=== PATIENT | male | born 1945 | race Caucasian/White ===

== ENCOUNTER 2020-10-30 18:52 | Inpatient (IN) | payer MEDICARE ==
[~2020-10-30] VITALS: Ht 182.9 cm; Wt 86.6 kg
--- NOTE | 2020-10-30 19:00 | NUR ---
GPS RN-ADMISSION NOTES: ADMITTED A 75-YR OLD MALE, FROM [facility]. ADMITTED ON 5150 FOR DTS. PER HOLD, PT HAS BEEN DEPRESSED SINCE A STROKE 2YEARS AGO AND HAS STATED THAT HE IS READY TO ". "IT'S TIME FOR ME TO GO". PER REPORTS, PT IS IMPULSIVE AND FEARS HE WILL WALK INTO TRAFFIC. UPON FACE TO FACE ASSESSMENT, PATIENT IS A/OX3, DEPRESSED, CALM AND COOPERATIVE. PT WAS ADVISED OF HIS HOLD. PT'S RIGHTS HANDBOOK AND A GUIDE TO PRESCRIPTION MEDICATIONS GIVEN. IN NO APPARENT DISTRESS NOTED. BELONGINGS WERE INVENTORIED AND CHECKED FOR CONTRABAND. PT. IS UNDER THE PSYCHIATRIC CARE OF DR. BIANCA SINGH OBTAINED, AND UNDER THE MEDICAL CARE OF NAVNEET CHARLTON. SKIN BODY ASSESSMENT DONE. SKIN IS INTACT. DENIES PAIN/ DISCOMFORT AT THIS TIME. SAFETY PRECAUTIONS IN PLACE. BED IN LOCKED AND IN LOWEST POSITION. SIDE RAILS UP X2. WILL CONTINUE TO MONITOR Q15 MIN ROUNDS FOR SAFETY AND BEHAVIOR.
[2020-10-30] MEDS ORDERED: MAGNESIUM HYDROXIDE 30 ML UDC PO PRN (19:30)
[2020-10-30] MEDS ORDERED: MAG HYDROX/AL HYDROX/SIMETH 30 ML UDC PO PRN (19:30)
[2020-10-30] MEDS ORDERED: ACETAMINOPHEN 325 MG TABLET PO PRN (19:30)
[2020-10-30 20:00] VITALS: BP 157/83
[2020-10-30 20:11] VITALS: BP 154/83
[2020-10-30] MEDS ORDERED: EZETIMIBE PO (20:14)
[2020-10-30] MEDS ORDERED: INSULIN GLARGINE SQ (20:14)
[2020-10-30] MEDS ORDERED: LOSARTAN PO (20:14)
[2020-10-30] MEDS: TEMAZEPAM 7.5 MG CAPSULE PO PRN (21:27)
--- NOTE | 2020-10-30 21:27 | NUR ---
GPS-RN NOTES: INSOMNIA PATIENT C/O UNABLE TO SLEEP. ADMINISTERED RESTORIL 7.5MG PO ORDERED. WILL CONTINUE TO MONITOR FOR PATIENT'S SAFETY.
[2020-10-30] MEDS ORDERED: BLOOD SUGAR DIAGNOSTIC 1 EACH STRIP IN ONE (21:30)
[2020-10-30] MEDS ORDERED: DEXTROSE 50%-WATER 50 ML DISP.SYRIN IV PRN (22:00)
[2020-10-30] MEDS: BLOOD SUGAR DIAGNOSTIC 1 EACH STRIP IN SCH (22:14)
[2020-10-31 06:56] LABS: ALANINE AMINOTRANSFERASE 13 U/L (12-78); ALBUMIN 3.1 g/dL (3.4-5.0); ALKALINE PHOSPHATASE 59 U/L (46-116); ASPARTATE AMINOTRANSFERASE 10 U/L (15-37); BILIRUBIN,TOTAL 1.4 mg/dL (0.2-1.0); CALCIUM, SERUM 8.9 mg/dL (8.5-10.1); CARBON DIOXIDE 24 mmol/L (21-32); CHLORIDE 108 mmol/L (98-107); CREATININE 1.5 mg/dL (0.6-1.3); GLUCOSE 165 mg/dL (74-106); POTASSIUM 3.8 mmol/L (3.5-5.1); SODIUM SERUM 141 mmol/L (136-145); TOTAL PROTEIN, SERUM 6.1 g/dL (6.4-8.2); UREA NITROGEN, BLOOD 22 mg/dL (7-18)
[2020-10-31 07:00] LABS: CHOLESTEROL 223 mg/dL (<200); HDL CHOLESTEROL 36 mg/dL (40-60); LDL 149 mg/dL (0-99); TRIGLYCERIDES 218 mg/dL (30-150)
[2020-10-31 08:00] VITALS: BP 128/75
[2020-10-31] MEDS: LOSARTAN POTASSIUM 25 MG TABLET PO SCH (09:28)
[2020-10-31] MEDS: EZETIMIBE 10 MG TABLET PO SCH (09:28)
[2020-10-31] MEDS: INSULIN REGULAR, HUMAN 100 UNIT/ML 3 ML VIAL SQ PRN (09:31)
[2020-10-31] MEDS: INSULIN GLARGINE, 100 UNIT/ML CARTRIDGE SQ SCH (09:34)
[2020-10-31] MEDS: BLOOD SUGAR DIAGNOSTIC 1 EACH STRIP IN SCH ×4 (09:35→22:26)
[2020-10-31] MEDS: OLANZAPINE 2.5 MG TABLET PO SCH ×2 (11:30→17:14)
[2020-10-31] MEDS: DIVALPROEX SODIUM 250 MG TABLET.DR PO SCH ×2 (11:30→17:14)
[2020-10-31] MEDS: LORAZEPAM 0.5 MG TABLET PO PRN (13:07)
--- NOTE | 2020-10-31 13:08 | NUR ---
RN NOTE:Patient agitated and medicated with Ativan 0.5mg x1 will continue to monitor .
[2020-10-31 16:00] VITALS: BP 129/81
[2020-10-31 20:00] VITALS: BP 114/62
--- NOTE | 2020-11-01 06:51 | NUR ---
GPS RN CLOSING NOTES: PATIENT AWAKE, A/O X3. SLEPT 8.5HR THIS SHIFT. NO S/S OF DISTRESS. RESPIRATION EVEN AND UNLABORED WITH EQUAL RISE AND FALL OF THE CHEST ON ROOM AIR. NO BEHAVIORAL ISSUES THIS SHIFT. SAFETY PRECAUTION MAINTAINED, BED IN LOWEST POSITION AND LOCKED. Q15 MINUTES SAFETY ROUND CONTINUED. ALL PATIENT CARE NEEDS MET ANTICIPATED. WILL CONTINUE TO MONITOR PATIENT FOR MOOD, BEHAVIOR AND SAFETY AND ENDORSE TO AM SHIFT.
--- NOTE | 2020-11-01 07:25 | NUR ---
GPS RN NOTES PATIENT SEEN IN BED RESTING, AWAKE AND VERBALLY RESPONSIVE. BREATHING EVEN AND UNLABORED, ON ROOM AIR. ABLE TO MAKE NEEDS KNOWN, NOT IN ACUTE DISTRESS AT THIS TIME. SAFETY PRECAUTIONS IN PLACE. WILL CONTINUE TO MONITOR.
[2020-11-01] MEDS: BLOOD SUGAR DIAGNOSTIC 1 EACH STRIP IN SCH ×4 (07:40→21:34)
[2020-11-01] MEDS: INSULIN REGULAR, HUMAN 100 UNIT/ML 3 ML VIAL SQ PRN ×3 (07:42→17:05)
[2020-11-01 08:00] VITALS: BP 111/68
[2020-11-01 08:39] LABS: BASOPHILS % (AUTO) 0.8 % (0.0-2.0); EOSINOPHILS % (AUTO) 4.8 % (0.0-6.0); HEMATOCRIT 37 % (39-51); HEMOGLOBIN 12.9 g/dL (13.5-17.5); LYMPHOCYTES # (AUTO) 0.8 /CMM (0.8-4.8); MEAN CORPUSCULAR HGB CONC 35 g/dl (31.0-36.0); MEAN CORPUSCULAR VOLUME 96 fL (80-96); MONOCYTES # (AUTO) 0.6 /CMM (0.1-1.30); NEUTROPHILS # (AUTO) 3.8 /CMM (1.8-8.9); NEUTROPHILS % (AUTO) 68.4 % (43.0-81.0); PLATELET COUNT (AUTO) 144 /CMM (150-450); RED BLOOD CELL COUNT(AUTO) 3.86 MIL/uL (4.5-6.0); WHITE BLOOD COUNT (AUTO) 5.6 K/uL (4.3-11.0)
[2020-11-01 08:50] LABS: CREATINE KINASE, TOTAL 130 U/L (39-308)
[2020-11-01 08:51] LABS: ALANINE AMINOTRANSFERASE 12 U/L (12-78); ALBUMIN 3.1 g/dL (3.4-5.0); ALKALINE PHOSPHATASE 51 U/L (46-116); ASPARTATE AMINOTRANSFERASE 12 U/L (15-37); BILIRUBIN,TOTAL 1.6 mg/dL (0.2-1.0); CALCIUM, SERUM 8.9 mg/dL (8.5-10.1); CARBON DIOXIDE 24 mmol/L (21-32); CHLORIDE 108 mmol/L (98-107); CREATININE 1.4 mg/dL (0.6-1.3); GLUCOSE 105 mg/dL (74-106); MAGNESIUM 1.9 mg/dL (1.8-2.4); PHOSPHORUS 3.8 mg/dL (2.5-4.9); POTASSIUM 3.8 mmol/L (3.5-5.1); SODIUM SERUM 141 mmol/L (136-145); TOTAL PROTEIN, SERUM 6.2 g/dL (6.4-8.2); UREA NITROGEN, BLOOD 26 mg/dL (7-18)
[2020-11-01] MEDS: OLANZAPINE 2.5 MG TABLET PO SCH ×2 (09:07→16:13)
[2020-11-01] MEDS: EZETIMIBE 10 MG TABLET PO SCH (09:07)
[2020-11-01] MEDS: DIVALPROEX SODIUM 250 MG TABLET.DR PO SCH ×2 (09:08→16:13)
[2020-11-01] MEDS: LOSARTAN POTASSIUM 25 MG TABLET PO SCH (09:08)
[2020-11-01] MEDS: INSULIN GLARGINE, 100 UNIT/ML CARTRIDGE SQ SCH (09:10)
[2020-11-01 16:00] VITALS: BP 117/67
--- NOTE | 2020-11-01 16:15 | NUR ---
Family Contact: SW called the pts , Dee Briseno ([phone]), and discussed the pts treatment. She stated that the pt has been confused and that he needs to become stabilized. SW inquired if she wanted the pt to be discharged back home and she stated that she wants to see how the pt progresses before thinking about placement.
--- NOTE | 2020-11-01 19:13 | NUR ---
GPS RN NOTES PATIENT IN THE ROOM, AWAKE AND VERBALLY RESPONSIVE. PREVIOUSLY SEEN WALKING ALONG THE HALLWAY, NO ISSUES NOTED. NEEDS REINFORCEMENT W/ MEDICATION COMPLIANCE. SAFETY PRECS MAINTAINED. WILL ENDORSE TO BAND INSTRUMENT REPAIRER RN FOR SUNDAR.
[2020-11-01 20:39] VITALS: BP 125/66
[2020-11-02 07:06] LABS: PTH, INTACT 18 pg/mL (15-65)
[2020-11-02 08:00] VITALS: BP 122/51
[2020-11-02] MEDS: BLOOD SUGAR DIAGNOSTIC 1 EACH STRIP IN SCH ×4 (08:06→21:16)
[2020-11-02] MEDS: EZETIMIBE 10 MG TABLET PO SCH (09:29)
[2020-11-02] MEDS: OLANZAPINE 2.5 MG TABLET PO SCH ×2 (09:29→17:02)
[2020-11-02] MEDS: DIVALPROEX SODIUM 250 MG TABLET.DR PO SCH ×2 (09:29→17:01)
[2020-11-02] MEDS: LOSARTAN POTASSIUM 25 MG TABLET PO SCH (09:33)
[2020-11-02] MEDS: INSULIN GLARGINE, 100 UNIT/ML CARTRIDGE SQ SCH (10:10)
--- NOTE | 2020-11-02 10:45 | NUR ---
reluctant to take insulin,very confused.needed coaxing.
[2020-11-02] MEDS: INSULIN REGULAR, HUMAN 100 UNIT/ML 3 ML VIAL SQ PRN ×2 (12:13→21:38)
--- NOTE | 2020-11-02 13:55 | NUR ---
NOTED RED SPOT MID BACK PHOTO TAKEN.MEPILEX APPLIED.REFUSED SKIN CHECK ON ADMISSION.
--- NOTE | 2020-11-02 13:58 | NUR ---
Initial Discharge Plan: Pt currently resides at home with his , Dee Briseno ([phone]), located at [address] [place] [address]. Per pt, he would like to return to his home. Per pts , she would like to see his progress before considering placement. SHANNON will work with the pt, pts , and MD regarding discharge planning. SW will form a safe and proper discharge.
[2020-11-02 15:07] LABS: *SPE A/G RATIO 1.2 (0.7-1.7); *SPE ALPHA-1-GLOBULIN 0.2 g/dL (0.0-0.4); *SPE ALPHA-2-GLOBULIN 0.8 g/dL (0.4-1.0); *SPE BETA GLOBULIN 0.9 g/dL (0.7-1.3); *SPE GLOBULIN, TOTAL 2.6 g/dL (2.2-3.9); *SPE M-SPIKE Not Observed g/dL (Not Observed); *SPEGAMMA GLOBULIN 0.7 g/dL (0.4-1.8)
--- NOTE | 2020-11-02 15:29 | NUR ---
STAYS IN . MOST OF TIME,MED COMPLIANT.VITAL SIGNS STABLE.NO ACUTE DISTRESS.
[2020-11-02 16:00] VITALS: BP 105/61
[2020-11-02 19:34] VITALS: BP 111/51
[2020-11-02] MEDS: TEMAZEPAM 7.5 MG CAPSULE PO PRN (23:37)
--- NOTE | 2020-11-02 23:37 | NUR ---
GPS-RN NOTES: INSOMNIA PATIENT C/O INABILITY TO SLEEP. ADMINISTERED RESTORIL 7.5MG PO ORDERED. WILL CONTINUE TO MONITOR FOR PATIENT'S SAFETY.
--- NOTE | 2020-11-03 07:40 | NUR ---
bgl 87 in am lantus insulin to be delayed a little.
[2020-11-03 08:00] VITALS: BP 143/90
[2020-11-03] MEDS: BLOOD SUGAR DIAGNOSTIC 1 EACH STRIP IN SCH ×4 (08:28→22:12)
--- NOTE | 2020-11-03 09:52 | NUR ---
WOUND CARE CONSULT: PT PRESENTS AMBULATORY AND HAS REDNESS/ABRASION TO UPPER BACK. RECOMMENDATIONS MADE FOR SKIN PROTECTION AND WOUND CARE. SURGICAL SCAR NOTED TO BACK WELL. PT INCONTINENT OF STOOL. SHOWER TO BE ASSISTED BY NURSING STAFF. WILL SEE PRN. DODGE IN AGREEMENT WITH PLAN OF CARE.
[2020-11-03] MEDS: DIVALPROEX SODIUM 250 MG TABLET.DR PO SCH ×3 (10:33→22:11)
[2020-11-03] MEDS: OLANZAPINE 2.5 MG TABLET PO SCH ×2 (10:33→17:07)
[2020-11-03] MEDS: LOSARTAN POTASSIUM 25 MG TABLET PO SCH (10:34)
[2020-11-03] MEDS: EZETIMIBE 10 MG TABLET PO SCH (10:34)
--- NOTE | 2020-11-03 11:03 | NUR ---
Probable Cause Hearing: Pts [id number] hold was upheld for grave disability and danger to self.
[2020-11-03] MEDS: INSULIN GLARGINE, 100 UNIT/ML CARTRIDGE SQ SCH (11:55)
[2020-11-03] MEDS: INSULIN REGULAR, HUMAN 100 UNIT/ML 3 ML VIAL SQ PRN ×2 (11:57→18:29)
--- NOTE | 2020-11-03 15:49 | NUR ---
briseyda lithographers printer in and made aware of blood sugar in am.no change in dose of lantus.
--- NOTE | 2020-11-03 15:50 | NUR ---
no change in status.resting in rm.
[2020-11-03 16:00] VITALS: BP 146/74
--- NOTE | 2020-11-03 18:48 | NUR ---
additional photo taken of red spots on back.placed photo in chart.
[2020-11-03 20:00] VITALS: BP 133/70
[2020-11-04] MEDS: BLOOD SUGAR DIAGNOSTIC 1 EACH STRIP IN SCH ×4 (07:30→21:09)
[2020-11-04 08:00] VITALS: BP 136/72
[2020-11-04] MEDS: OLANZAPINE 2.5 MG TABLET PO SCH ×2 (09:13→16:18)
[2020-11-04] MEDS: DIVALPROEX SODIUM 250 MG TABLET.DR PO SCH ×3 (09:13→21:09)
[2020-11-04] MEDS: EZETIMIBE 10 MG TABLET PO SCH (09:13)
[2020-11-04] MEDS: LOSARTAN POTASSIUM 25 MG TABLET PO SCH (09:14)
[2020-11-04] MEDS: INSULIN GLARGINE, 100 UNIT/ML CARTRIDGE SQ SCH (09:42)
[2020-11-04 16:00] VITALS: BP 127/66
[2020-11-04] MEDS: INSULIN REGULAR, HUMAN 100 UNIT/ML 3 ML VIAL SQ PRN (17:38)
[2020-11-04 20:00] VITALS: BP 103/52
[2020-11-05] MEDS: BLOOD SUGAR DIAGNOSTIC 1 EACH STRIP IN SCH ×4 (07:01→21:38)
[2020-11-05 07:23] LABS: BASOPHILS % (AUTO) 0.7 % (0.0-2.0); EOSINOPHILS % (AUTO) 5.7 % (0.0-6.0); HEMATOCRIT 39 % (39-51); HEMOGLOBIN 13.4 g/dL (13.5-17.5); MEAN CORPUSCULAR HGB CONC 34 g/dl (31.0-36.0); MEAN CORPUSCULAR VOLUME 97 fL (80-96); MONOCYTES # (AUTO) 0.7 /CMM (0.1-1.30); MONOCYTES % (AUTO) 12.9 % (2.0-12.0); NEUTROPHILS # (AUTO) 3.3 /CMM (1.8-8.9); NEUTROPHILS % (AUTO) 61.7 % (43.0-81.0); PLATELET COUNT (AUTO) 149 /CMM (150-450); RED BLOOD CELL COUNT(AUTO) 4.04 MIL/uL (4.5-6.0); WHITE BLOOD COUNT (AUTO) 5.4 K/uL (4.3-11.0)
[2020-11-05 08:00] VITALS: BP 125/55
[2020-11-05 08:30] LABS: CARBON DIOXIDE 24 mmol/L (21-32); CHLORIDE 108 mmol/L (98-107); CREATININE 1.4 mg/dL (0.6-1.3); GLUCOSE 101 mg/dL (74-106); MAGNESIUM 2.1 mg/dL (1.8-2.4); PHOSPHORUS 3.3 mg/dL (2.5-4.9); POTASSIUM 3.8 mmol/L (3.5-5.1); SODIUM SERUM 143 mmol/L (136-145); UREA NITROGEN, BLOOD 29 mg/dL (7-18)
[2020-11-05] MEDS: DIVALPROEX SODIUM 250 MG TABLET.DR PO SCH ×3 (08:38→20:06)
[2020-11-05] MEDS: LORAZEPAM 0.5 MG TABLET PO PRN (08:38)
[2020-11-05] MEDS: EZETIMIBE 10 MG TABLET PO SCH (08:39)
[2020-11-05] MEDS: LOSARTAN POTASSIUM 25 MG TABLET PO SCH (08:39)
[2020-11-05] MEDS: OLANZAPINE 2.5 MG TABLET PO SCH ×3 (08:39→21:19)
[2020-11-05] MEDS: INSULIN GLARGINE, 100 UNIT/ML CARTRIDGE SQ SCH (08:51)
[2020-11-05 10:40] VITALS: BP 125/55
[2020-11-05] MEDS: INSULIN REGULAR, HUMAN 100 UNIT/ML 3 ML VIAL SQ PRN (11:53)
--- NOTE | 2020-11-05 13:35 | NUR ---
Family Contact: SW called the pts , Dee Briseno ([phone]), and inquired about the pts discharge plan. Pts stated that she is not certain if she would want him home due to safety concerns. SW stated that she could refer the pt to a facility with dementia care and that once he is more stable he can return to their home. Pts stated that she agrees with this plan. SW stated that she will keep her updated.
--- NOTE | 2020-11-05 13:42 | NUR ---
SNF Referral: SHANNON faxed a referral to [facility] with attn to Negin to the fax number: [phone] and [facility] with attn to Sravan to the fax number: [phone].
--- NOTE | 2020-11-05 14:52 | NUR ---
SNF Contact: Sravan ([phone]) from [facility] contacted the SW and stated that the pt was accepted to their facility.
[2020-11-05 16:11] VITALS: BP 123/61
[2020-11-05 19:55] VITALS: BP 104/52
[2020-11-05 21:00] VITALS: BP 123/65
--- NOTE | 2020-11-06 06:36 | NUR ---
RN NOTES: PATIENT RESTING IN ROOM. NO S/S OF DISTRESS. NO BEHAVIOR PROBLEMS NOTED AND NO CHANGE OF CONDITION NOTED, SAFETY PRECAUTION MAINTAINED, Q15 MINUTES SAFETY ROUND CONTINUED. ALL PATIENT CARE NEEDS MET AT THIS TIME. WILL CONTINUE TO MONITOR PATIENT FOR MOOD, BEHAVIOR AND SAFETY AND ENDORSE TO AM SHIFT FOR CONTINUITY CARE.
[2020-11-06 08:00] VITALS: BP 118/58
[2020-11-06] MEDS: BLOOD SUGAR DIAGNOSTIC 1 EACH STRIP IN SCH ×4 (08:21→22:46)
[2020-11-06] MEDS: LOSARTAN POTASSIUM 25 MG TABLET PO SCH (09:00)
[2020-11-06] MEDS: EZETIMIBE 10 MG TABLET PO SCH (09:31)
[2020-11-06] MEDS: DIVALPROEX SODIUM 250 MG TABLET.DR PO SCH ×2 (09:32→21:14)
[2020-11-06] MEDS: INSULIN GLARGINE, 100 UNIT/ML CARTRIDGE SQ SCH (11:48)
--- NOTE | 2020-11-06 15:39 | NUR ---
VERY CONFUSED AND DISORGANIZED.REORIENTED.PLEASANT,COOPERATIVE.
[2020-11-06 16:00] VITALS: BP 117/55
[2020-11-06 20:55] VITALS: BP 141/78
[2020-11-06] MEDS: OLANZAPINE 2.5 MG TABLET PO SCH (22:36)
[2020-11-06] MEDS: INSULIN REGULAR, HUMAN 100 UNIT/ML 3 ML VIAL SQ PRN (22:52)
--- NOTE | 2020-11-07 06:50 | NUR ---
GPS RN CLOSING NOTES: PATIENT AWAKE AND ALERT. PATIENT SLEPT 9 HR THIS SHIFT. NO BEHAVIORAL ISSUES THIS SHIFT. MEDICATION COMPLIANT, NO PRN MEDS GIVEN THIS SHIFT. NO S/S OF DISTRESS. RESPIRATION EVEN AND UNLABORED WITH EQUAL RISE AND FALL OF THE CHEST ON ROOM AIR. SAFETY PRECAUTION MAINTAINED, BED IN LOWEST POSITION AND LOCKED. Q15 MINUTES SAFETY ROUND CONTINUED. ALL PATIENT CARE NEEDS MET ANTICIPATED. WILL CONTINUE TO MONITOR PATIENT FOR MOOD, BEHAVIOR AND SAFETY AND ENDORSE TO AM SHIFT.
[2020-11-07] MEDS: BLOOD SUGAR DIAGNOSTIC 1 EACH STRIP IN SCH ×4 (07:30→22:25)
[2020-11-07 08:00] VITALS: BP 136/71
[2020-11-07] MEDS: EZETIMIBE 10 MG TABLET PO SCH (08:52)
[2020-11-07] MEDS: DIVALPROEX SODIUM 250 MG TABLET.DR PO SCH ×2 (08:52→20:43)
[2020-11-07] MEDS: LOSARTAN POTASSIUM 25 MG TABLET PO SCH (08:52)
[2020-11-07] MEDS: INSULIN GLARGINE, 100 UNIT/ML CARTRIDGE SQ SCH (08:57)
[2020-11-07] MEDS: INSULIN REGULAR, HUMAN 100 UNIT/ML 3 ML VIAL SQ PRN (12:26)
[2020-11-07 16:00] VITALS: BP 127/67
[2020-11-07 20:00] VITALS: BP 131/64
[2020-11-07] MEDS ORDERED: OLANZAPINE 5 MG TABLET ONE (21:51)
[2020-11-07] MEDS: OLANZAPINE 2.5 MG TABLET PO SCH (22:29)
--- NOTE | 2020-11-07 22:29 | NUR ---
GPS RN NOTES: ZYPREXA 15MG ADMINISTERED PO BUT UNABLE TO SCAN BAR CODE, HAS TO MANUALLY ENTER CODE. THREE 5MG TABS/15MG COLLECTED FROM 3WEST BECAUSE GPS ANMOL DOES NOT HAVE UP TO 15MG ORDERED FOR PATIENT.
[2020-11-08] MEDS: BLOOD SUGAR DIAGNOSTIC 1 EACH STRIP IN SCH ×4 (07:42→21:25)
[2020-11-08 08:00] VITALS: BP 141/76
[2020-11-08] MEDS: EZETIMIBE 10 MG TABLET PO SCH (08:05)
[2020-11-08] MEDS: DIVALPROEX SODIUM 250 MG TABLET.DR PO SCH ×2 (08:05→21:13)
[2020-11-08] MEDS: INSULIN GLARGINE, 100 UNIT/ML CARTRIDGE SQ SCH (08:06)
[2020-11-08] MEDS: LOSARTAN POTASSIUM 25 MG TABLET PO SCH (08:06)
--- NOTE | 2020-11-08 11:33 | NUR ---
SNF Referral: SHANNON faxed a referral to [facility] with attn to Jose Angel to the fax number: [phone].
[2020-11-08 16:00] VITALS: BP 110/55
[2020-11-08] MEDS: INSULIN REGULAR, HUMAN 100 UNIT/ML 3 ML VIAL SQ PRN ×2 (17:04→21:27)
--- NOTE | 2020-11-08 18:35 | NUR ---
GPS RN NOTES PATIENT RESTING IN BED
--- NOTE | 2020-11-08 19:26 | NUR ---
RN NOTES, PATIENT IN BED SLEEPING, AROUSES TO VERBAL STIMULI, NO ABNORMAL BEHAVIOR NOTED, WILL CONT TO MONITOR CLOSELY.
[2020-11-08 20:00] VITALS: BP 130/70
[2020-11-08] MEDS: OLANZAPINE 2.5 MG TABLET PO SCH (21:13)
--- NOTE | 2020-11-09 06:44 | NUR ---
RN NOTES, PT IN ROOM AT THIS TIME, NO DISTRESS NOTED, NO DISRUPTIVE BEHAVIOR NOTED, DURING MY SHIFT, OTHERWISE NO SIGNIFICANT CHANGE IN CONDITION, WILL ENDORSE XONTINUITY OF CARE TO ONCOMING NURSE.
[2020-11-09] MEDS: BLOOD SUGAR DIAGNOSTIC 1 EACH STRIP IN SCH ×4 (07:32→21:51)
[2020-11-09 08:00] VITALS: BP 137/67
[2020-11-09] MEDS: LOSARTAN POTASSIUM 25 MG TABLET PO SCH (08:10)
[2020-11-09] MEDS: EZETIMIBE 10 MG TABLET PO SCH (08:10)
[2020-11-09] MEDS: DIVALPROEX SODIUM 250 MG TABLET.DR PO SCH ×2 (08:10→21:51)
[2020-11-09] MEDS: INSULIN REGULAR, HUMAN 100 UNIT/ML 3 ML VIAL SQ PRN ×2 (11:43→21:54)
[2020-11-09 13:11] LABS: BILIRUBIN,URINE NEGATIVE (NEGATIVE); COLOR,URINE YELLOW (YELLOW); LEUKOCYTE ESTERASE ,URINE NEGATIVE (NEGATIVE); NITRITE, URINE NEGATIVE (NEGATIVE); PH,URINE 5.5 (5.0-8.0); PROTEIN,URINE NEGATIVE (NEGATIVE); UGLUCOSE NEGATIVE (NEGATIVE); UROBILINOGEN,URINE 0.2 EU/dL (0.2)
[2020-11-09 16:00] VITALS: BP_SYST 142; BP_SYST 151; BP_DIAS 76; BP_DIAS 90
--- NOTE | 2020-11-09 17:03 | NUR ---
Family Contact: SW called the pts , Dee Briseno ([phone]), and informed her that the pt will be discharged to [facility]. Pts was provided with the necessary information about the facility.
--- NOTE | 2020-11-09 19:30 | NUR ---
RN NOTES, PATIENT IN BED ASLEEP BUT AROUSES TO VERBAL STIMULI, NO DISTRESS NOTED, NO DISRUPTIVE BEHAVIOR NOTED, WILL CONTINUE TO MONITOR CLOSELY.
[2020-11-09 20:29] VITALS: BP 107/53
[2020-11-09] MEDS: OLANZAPINE 2.5 MG TABLET PO SCH (21:50)
[2020-11-09] MEDS: TEMAZEPAM 7.5 MG CAPSULE PO PRN (21:51)
--- NOTE | 2020-11-10 03:15 | NUR ---
RN NOTES, UPON DOING ROUNDS, NOTICED PATIENT SITTING IN THE EDGE OF THE BED, I BROUGHT SOME BLANKETS TO PUT HIM TO BED AND COVER HIM, WHEN ENTERED ROOM, PATIENT WAS SITTING ON THE OPPOSITE SIDE OF THE BED FROM ME, PATIENT TRIED TO GET UP AND TRIPPED ON ONE SHEET THAT HE HAD IN HIS HAND, AND FELL ON SITTING POSITION LANDING WITH HIS BACK ON THE SIDE RAILS OF THE ROOMMATE'S BED, UPON HEAD TO TOE ASSESSMENT, NO CHANGE IN LOC NOTICED, PATIENT DENIES ANY PAIN, HE DIDN'T HIT HEAD, BUT NOTICED SMALL REDNESS/ABRASION IN MIDBACK, OTHERWISE NO ADDITIONAL FINDINGS, PATIENT VERY CONFUSED THAT IS THE BASELINE, HE SPEND TOO MUCH TIME STRETCHING SHEETS ON THE BED, I TOOK CARE OF HIM LAST NIGHT, AND HE CONSTANTLY WAS DOING THAT, VERY CONFUSED UNABLE TO DESCRIBED OR RESPOND PROPERLY TO QUESTIONS, EVERY TIME WE ASK QUESTIONS HE RESPOND WITH PHRASES THAT DON'T MAKE ANY SENSE, NO CLUTTER/LIQUIDS NOTED ON FLOOR, ENVIRONMENT SAFE, WITH APPROPRIATE LIGHTING, MATTIE DODGE SNUFF MAKER TIEN CACERES, AWAITING FOR RESPONSE, WILL CONTINUE TO MONITOR CLOSELY.
--- NOTE | 2020-11-10 03:18 | NUR ---
NURSES NOTES: RECEIVED CALL FROM [facility]- PATIENT'S COVID TEST RESULT- NEGATIVE.
--- NOTE | 2020-11-10 03:22 | NUR ---
RN NOTES, INFORMED TIEN CACERES MD DOCK BOSS ABOUT THE EVENT, AND HE REPLIED WITH NO NEW ORDERS BUT CONTINUE CLOSELY OBSERVATION FOR ANY CHANGES, NOTED AND CARRIED OUT.,
--- NOTE | 2020-11-10 04:00 | NUR ---
RN notes, continuous monitoring for patient, patient put on chair next to station and assigned at nurse to monitor.
--- NOTE | 2020-11-10 06:41 | NUR ---
RN NOTES, PATIENT AWAKE, A/O TO SELF ABLE TO SAY HIS DEEPA WHEN ASKED, BUT VERY VERY CONFUSED, S/P FALL NO CHANGES IN CONDITION, WILL ENDORSE CONTINUITY OF CARE TO ONCOMING NURSE.
--- NOTE | 2020-11-10 07:08 | NUR ---
RN NOTES, CALLED DEEP SÁNCHEZ AND INFORMED ABOUT THE PATIENT'S FALL, SHE VERBALIZED UNDERSTANDING, INFORMED THAT PATIENT HAS NO INJURIES, AND HES OK, SHE ASKED ABOUT THE DISCHARGE AND INFORMED HER THAT YES THE PLAN IS TO DC TODAY.
[2020-11-10 07:31] LABS: BASOPHILS % (AUTO) 0.5 % (0.0-2.0); EOSINOPHILS % (AUTO) 4.7 % (0.0-6.0); HEMATOCRIT 40 % (39-51); HEMOGLOBIN 13.3 g/dL (13.5-17.5); LYMPHOCYTES # (AUTO) 0.9 /CMM (0.8-4.8); LYMPHOCYTES % (AUTO) 17.6 % (20.0-44.0); MEAN CORPUSCULAR HGB CONC 33 g/dl (31.0-36.0); MEAN CORPUSCULAR VOLUME 100 fL (80-96); MONOCYTES # (AUTO) 0.7 /CMM (0.1-1.30); MONOCYTES % (AUTO) 13.6 % (2.0-12.0); NEUTROPHILS # (AUTO) 3.2 /CMM (1.8-8.9); NEUTROPHILS % (AUTO) 63.6 % (43.0-81.0); PLATELET COUNT (AUTO) 160 /CMM (150-450); RED BLOOD CELL COUNT(AUTO) 4.01 MIL/uL (4.5-6.0)
[2020-11-10 07:43] LABS: ALANINE AMINOTRANSFERASE 22 U/L (12-78); ALBUMIN 3.3 g/dL (3.4-5.0); ALKALINE PHOSPHATASE 50 U/L (46-116); ASPARTATE AMINOTRANSFERASE 21 U/L (15-37); CALCIUM, SERUM 9.1 mg/dL (8.5-10.1); CARBON DIOXIDE 21 mmol/L (21-32); CHLORIDE 109 mmol/L (98-107); CREATININE 1.5 mg/dL (0.6-1.3); GLUCOSE 142 mg/dL (74-106); MAGNESIUM 2.3 mg/dL (1.8-2.4); PHOSPHORUS 3.2 mg/dL (2.5-4.9); POTASSIUM 4.3 mmol/L (3.5-5.1); SODIUM SERUM 141 mmol/L (136-145); TOTAL PROTEIN, SERUM 6.8 g/dL (6.4-8.2); UREA NITROGEN, BLOOD 35 mg/dL (7-18)
[2020-11-10 08:00] VITALS: BP 157/83
[2020-11-10] MEDS: BLOOD SUGAR DIAGNOSTIC 1 EACH STRIP IN SCH ×2 (08:05→12:12)
[2020-11-10 08:36] VITALS: BP 157/83
[2020-11-10] MEDS: DIVALPROEX SODIUM 250 MG TABLET.DR PO SCH (08:36)
[2020-11-10] MEDS: LOSARTAN POTASSIUM 25 MG TABLET PO SCH (08:36)
[2020-11-10] MEDS: EZETIMIBE 10 MG TABLET PO SCH (08:36)
--- NOTE | 2020-11-10 10:50 | NUR ---
Discharge Note: Pt will be discharged to [facility] ([facility]) located at [address] [place] [address]; ([phone]). Pt will be transported via [facility] (Trip #[id number]) at 2PM. Pts , Dee Briseno ([phone]), was informed of the discharge. Upon discharge, pt appears to be in a dysphoric mood and presented with a calm affect. Pt denies both suicidal and homicidal ideation as well as auditory and visual hallucinations. Pt appears to be alert and oriented x2. Pt appears to be ambulatory with an unsteady gait. Pt appears to be disheveled yet appropriately dressed. Pt will continue to be under the care of psychiatrist, Dr. Golden, located at [address] [facility], [address] [place] [address]; and recreation specialist, Dr. Aguayo, located at [address] [place] [address]; . Pt signed the Choice of Vendor form which was placed in the chart. The Choice of vendor form and the multidisciplinary exit care form was done, printed, signed, and given to the patient.
[2020-11-10] MEDS: INSULIN REGULAR, HUMAN 100 UNIT/ML 3 ML VIAL SQ PRN (12:16)
--- NOTE | 2020-11-10 15:10 | NUR ---
NURSING DISCHARGE NOTE: PT WAS DISCHARGED TODAY AT 1505 TO [facility] ([facility]) LOCATED AT [address] [place] [address]. . PT LEFT THE UNIT ON A GURNEY VIA AMBULANCE ACCOMPANIED BY 2 ALLERGY PHYSICIAN. PT'S DEEP SÁNCHEZ WAS INFORMED OF THE DISCHARGE. PT IS A&OX1-2, CALM, COOPERATIVE, CONFUSED, DISORIENTED, REDIRECTABLE, PLEASANT, MED COMPLIANT, DENIES SI/HI/AVH AT THE TIME OF DISCHARGE. DISCHARGE ORDER WAS GIVEN BY DR. VALENZUELA WITH ORDER TO CONTINUE ALL PSYCHIATRIC MEDICATIONS AND PT WAS MEDICALLY CLEARED FOR DISCHARGE BY DR. MOORE. VSS. SKIN ASSESSMENT WAS DONE WITH PHOTOS TAKEN AND PLACED IN THE CHART. PT HAS BRUISING TO BUTTOCKS AND REDNESS TO MID BACK. PT WAS COOPERATIVE WITH THE DISCHARGE PROCESS AND WAS ABLE TO SIGN DISCHARGE PAPERWORK. REPORT WAS GIVEN TO MARICRUZ LEAHY AT [phone]. ALL BELONGINGS WERE RETURNED TO PT. NO S/S OF ANY DISTRESS NOTED. NO C/O PAIN OR ANY DISCOMFORT.
== END 2020-11-10 15:05 | DRG 885 ==
LOC: GPS 18:52
PROVIDERS: ADMIT Psychiatry & Neurology Psychiatry; ATTEND Hospitalist
DX: F29 Unspecified psychosis not due to a substance or known physiological condition (principal); N17.0 Acute kidney failure with tubular necrosis; N18.9 Chronic kidney disease, unspecified; E11.65 Type 2 diabetes mellitus with hyperglycemia; F03.91 Unspecified dementia, unspecified severity, with behavioral disturbance; N17.9 Acute kidney failure, unspecified; F41.9 Anxiety disorder, unspecified; E78.5 Hyperlipidemia, unspecified; Z20.822 Contact with and (suspected) exposure to COVID-19; Z73.6 Limitation of activities due to disability; R26.9 Unspecified abnormalities of gait and mobility; I12.9 Hypertensive chronic kidney disease with stage 1 through stage 4 chronic kidney disease, or unspecified chronic kidney disease; F20.9 Schizophrenia, unspecified
CPT/HCPCS: 36415; 80048-TC; 80053-TC; 80061-TC; 80164-TC; 82550-TC; 82962-TC; 83735-TC; 83970; 84100-TC; 84155; 84165; 85025-TC; 87081-TC; 87086-TC; J1815; J7050